=== PATIENT | female | born 1985 | race African-American/Black ===

== ENCOUNTER 2017-03-16 09:06 | Emergency (ER) | payer SELFPAY ==
[~2017-03-16] VITALS: Ht 160 cm; Wt 75.3 kg
[~2017-03-16 09:06] MED LIST: ACYC400T PO; AMOX1TAB61 PO; FERR-26 PO; IBUP-1060 PO; MEDR150D3 IM; OXYC-323 PO; TRIA15OI TP
[2017-03-16 10:11] VITALS: BP 126/82
[2017-03-16] MEDS ORDERED: AZITHROMYCIN 250 MG TABLET. PO ONE (10:15)
[2017-03-16] MEDS ORDERED: cefTRIAXone IM 250 MG VIAL IM ONE (10:15)
[2017-03-16] MEDS ORDERED: metroNIDAZOLE 500 MG TABLET PO ONE (10:15)
[2017-03-16 10:47] LABS: BILIRUBIN,URINE NEGATIVE (NEG); GLUCOSE,URINE NEGATIVE (NEG); NITRITE,URINE NEGATIVE (NEG); PROTEIN,URINE NEGATIVE (NEG-TRACE); UROBILINOGEN,URINE 0.2 mg/dL (0.2 mg/dL)
[2017-03-16 11:06] LABS: BACTERIA,URINE FEW /HPF (0-FEW); RBC,URINE 0 /HPF (0-2); WBC,URINE 20-40 /HPF (0-4)
--- NOTE | 2017-03-16 11:06 | PHYS DOC ---
Past Medical History Past Medical History: No Pertinent History Past Surgical History: No Surgical History Alcohol Use: None Drug Use: None, Phencyclidine Adult General Chief Complaint Chief Complaint: ABDOMINAL PAIN HPI HPI Patient is a 32 year old female who presents with generalized abdominal pain and vaginal discharge that began 4 days ago. Patient is concerned about STDs and would like to be tested and treated. Review of Systems Review of Systems Constitutional: Denies fever or chills [] Eyes: Denies change in visual acuity, redness, or eye pain [] HENT: Denies nasal congestion or sore throat [] Respiratory: Denies cough or shortness of breath [] Cardiovascular: No additional information not addressed in HPI [] GI: Generalized abdominal pain and vaginal discharge, denies nausea, vomiting, bloody stools or diarrhea [] : Denies dysuria or hematuria [] Musculoskeletal: Denies back pain or joint pain [] Integument: Denies rash or skin lesions [] Neurologic: Denies headache, focal weakness or sensory changes [] Current Medications Current Medications Current Medications Medications (Trade) Dose Ordered Sig/Anusha Start Time Stop Time Status Last Admin Dose Admin Azithromycin (Zithromax) 1,000 mg 1X ONCE 03/16/17 10:15 03/16/17 10:16 DC 03/16/17 10:28 1,000 MG Ceftriaxone Sodium (Rocephin Im) 250 mg 1X ONCE 03/16/17 10:15 03/16/17 10:16 DC 03/16/17 10:28 250 MG Metronidazole (Flagyl) 2,000 mg 1X ONCE 03/16/17 10:15 03/16/17 10:16 DC 03/16/17 10:28 2,000 MG Allergies Allergies Allergies Coded Allergies Type Severity Reaction Last Updated Verified morphine Allergy Severe "i swell up" 01/22/16 Yes Physical Exam Physical Exam Constitutional: Well developed, well nourished, no acute distress, non-toxic appearance. [] HENT: Normocephalic, atraumatic, bilateral external ears normal, oropharynx moist, no oral exudates, nose normal. [] Eyes: PERRLA, EOMI, conjunctiva normal, no discharge. [] Neck: Normal range of motion, no tenderness, supple, no stridor. [] Cardiovascular:Heart rate regular rhythm, no murmur [] Lungs & Thorax: Bilateral breath sounds clear to auscultation [] Abdomen: Bowel sounds normal, soft, no tenderness, no masses, no pulsatile masses. [] Pelvic exam External pelvic appears normal, cervix is closed, no CMT, adnexal tenderness, small amount of white discharge in the vaginal vault. Skin: Warm, dry, no erythema, no rash. [] Back: No tenderness, no CVA tenderness. [] Extremities: No tenderness, no cyanosis, no clubbing, ROM intact, no edema. [] Neurologic: Alert and oriented X 3, normal motor function, normal sensory function, no focal deficits noted. [] Psychologic: Affect normal, judgement normal, mood normal. [] Current Patient Data Vital Signs Vital Signs Date Time Temp Pulse Resp B/P (MAP) Pulse Ox O2 Delivery O2 Flow Rate FiO2 03/16/17 10:11 97.8 67 18 100 Room Air 97.8 Lab Values Laboratory Tests Test 03/16/17 09:50 03/16/17 10:02 Urine Collection Type Unknown Urine Color Yellow Urine Clarity Cloudy Urine pH 8.0 Urine Specific [place] 1.015 Urine Protein Negative mg/dL (NEG-TRACE) Urine Glucose (UA) Negative mg/dL (NEG) Urine Ketones (Stick) Negative mg/dL (NEG) Urine Blood Moderate (NEG) Urine Nitrite Negative (NEG) Urine Bilirubin Negative (NEG) Urine Urobilinogen Dipstick 0.2 mg/dL (0.2 mg/dL) Urine Leukocyte Esterase Large (NEG) Urine RBC 0 /HPF (0-2) Urine WBC 20-40 /HPF (0-4) Urine Squamous Epithelial Cells Many /LPF Urine Bacteria Few /HPF (0-FEW) POC Urine HCG, Qualitative Hcg negative (Negative) Microbiology 03/16/17 Wet Prep - Final, Complete EKG EKG [] Radiology/Procedures Radiology/Procedures [] Course & Med Decision Making Course & Med Decision Making Pertinent Labs and Imaging studies reviewed. (See chart for details) Patient is in the ED with generalized abdominal pain and vaginal discharge and concern for STDs. Swabs were obtained. She was given Rocephin Flagyl and azithromycin. Wet prep is positive for BV. Will be discharged and Flagyl. Urine positive for UTI. Discharged Bactrim. Follow-up with PCP or [facility] in 1-2 weeks. Safe sex education provided. Dragon Disclaimer Dragon Disclaimer This electronic medical record was generated, in whole or in part, using a voice recognition dictation system. Departure Departure Impression: Primary Impression: Bacterial vaginosis Additional Impressions: Generalized abdominal pain UTI (urinary tract infection) Concern about STD in female without diagnosis Disposition: 01 HOME, SELF-CARE Condition: STABLE Referrals: NO PCP (PCP) RYAN MCFARLANE DO follow up in one week Patient Instructions: Bacterial Vaginosis, [id number], Sexually Transmitted Disease, Urinary Tract Infection, [id number] Additional Instructions: You were seen for abdominal pain, vaginal discharge and concern for STDs. We treated you prophylaxis for STDs. We will call you in 3-7 days if your results are positive for STDs otherwise we do not call if results are negative. Contact all your sex partners, let them know you were treated for STDs and ask them to seek treatment too. You are positive for bacterial vaginosis, this is not an STD. It's treated with Flagyl. You also have UTI, complete your antibiotics. Scripts Fluconazole (DIFLUCAN) 150 Mg Tablet 1 TAB PO ONCE, #1 TAB 1 Refill on today and repeat in seven days Prov: HARSHAD GALINDO APRN 03/16/17 Sulfamethoxazole/Trimethoprim (BACTRIM DS TABLET) 1 Each Tablet 1 TAB PO BID, #10 TAB Prov: HARSHAD GALINDO APRN 03/16/17 Metronidazole (FLAGYL) 500 Mg Tablet 1 TAB PO BID, #10 TAB Prov: HARSHAD GALINDO APRN 17 Problem Qualifiers Additional Impressions: UTI (urinary tract infection) Urinary tract infection type: site unspecified Hematuria presence: without hematuria Qualified Codes: N39.0 - Urinary tract infection, site not specified HARSHAD GALINDO APRN Mar 16, 2017 11:06
[2017-03-16 11:07] LABS: SQUAMOUS EPITHELIAL CELL,UR MANY /LPF
[2017-03-16] MEDS ORDERED: SULF1TAB24 PO (11:21)
[2017-03-16] MEDS ORDERED: FLUC150T PO (11:21)
[2017-03-16] MEDS ORDERED: METR500T PO (11:21)
== END 2017-03-16 11:30 | disposition home or self-care (01) ==
LOC: ER 09:06
DX: Z11.3 Encounter for screening for infections with a predominantly sexual mode of transmission (principal); N76.0 Acute vaginitis; N39.0 Urinary tract infection, site not specified; Z88.5 Allergy status to narcotic agent
CPT/HCPCS: 81001; 81025; 87491; 87591; 96372; 99284; J0696; Q0111; Q0144